=== PATIENT | female | born 1980 | race African-American/Black ===

== ENCOUNTER → 2016-06-12 | Outpatient (CLI) | payer MEDICARE, OTHER ==
--- NOTE | ~2016-06-12 | XA230 ---
[facility] A Service [facility] RADIOLOGY TEXT RESULTS PATIENT: WILLIE GOFF LOCATION: [facility] : 82 UNIT #: [id number] AGE: [address]: Chitra Ríos MD SEX: F ORDER DR: [id number] [facility]. [place], [place] [address] [id number] O MR#: [id number] Acc #: [id number] NAME: WILLIE GOFF. : 1980 SEX: F STUDY DATE/TIME: 06/12/2016 14:58 UNIT: [facility] ROOM: STUDY DESCRIPTION: XA FNA Attending Physician: Chitra Ríos M.D. Referring Physician: Chitra Ríos M.D. Ordering Physician: Chitra Ríos M.D. Primary Care Physician: Renato Maya M.D. MEDICAL IMAGING REPORT This report is preliminary unless electronic signature is present EXAM Ultrasound-guided right thyroid FNA 06/12/2016 INDICATIONS 36-year-old female with right thyroid nodule. PROCEDURE Risks, benefits and alternatives of the procedure were discussed with the patient and informed consent was obtained. In the procedure room a time-out was performed confirming correct patient and procedure. All elements of maximum sterile-barrier technique utilized according guidelines appropriate for the procedure. TECHNIQUE/FINDINGS Ultrasound of the thyroid gland was performed and correlated with the thyroid ultrasound from 03/11/2016. The nodule along the posterior border of the right lobe of the thyroid gland was identified and was unchanged in size and appearance measuring about 4.2 cm in greatest dimension. The overlying skin was prepped and draped in the usual sterile fashion. 1% lidocaine utilized to anesthetize the skin and underlying subcutaneous tissues. Next under ultrasound guidance 3 passes were made into this nodule with 25-gauge needles and fine-needle aspirate was performed and samples were sent to pathology. The patient tolerated the procedure well without immediate complications. IMPRESSION Technically successful fine needle aspiration of a right thyroid nodule. Dictated by... Arthur Barbosa M.D. [facility] A Service of [facility] RADIOLOGY TEXT RESULTS PATIENT: WILLIE GOFF [id number] [birth year] UNIT #: [id number] AGE: [address]: Chitra Ríos MD SEX: F ORDER DR: THIS IS AN ELECTRONICALLY VERIFIED REPORT Arthur Barbosa M.D. at 06/13/2016 8:09 AM Srini TD: 06/12/2016 18:15 JOB #: [id number] MEDICAL IMAGING REPORT COPY
== END | disposition home or self-care (01) ==
LOC: CIVR 13:41
DX: E04.1 Nontoxic single thyroid nodule (principal)
CPT/HCPCS: 76942; 88172; 88173; 88305